=== PATIENT | male | born 1975 | race African-American/Black ===

== ENCOUNTER 2018-01-24 14:54 | Emergency (ER) | payer MEDICAID ==
[~2018-01-24] VITALS: Ht 175.3 cm; Wt 136.1 kg
[2018-01-24 15:17] VITALS: BP 137/86
[2018-01-24 15:58] LABS: Basophils # (auto) 0 uL; Eosinophils # (auto) 0.1 uL; Eosinophils % (auto) 1.4 % (0.0-7.0)
[2018-01-24 16:00] LABS: Basophils % (auto) 0.4 % (0.0-2.0); Hematocrit 51.1 % (41.0-53.0); Lymphocytes # (auto) 2.5 uL; Lymphocytes % (auto) 27.6 % (10.0-50.0); Mean Corpuscular Hemoglobin 34.7 pg (28.0-32.0); Mean Corpuscular Hgb Conc. 35.2 g/dL (32.0-36.0); Mean Corpuscular Volume 98.6 fL (80.0-100.0); Monocytes % (auto) 10.8 % (0.0-12.0); Neutrophils # (auto) 5.4 uL; Neutrophils % (auto) 59.8 % (37.0-80.0); Nucleated Red Blood Cells % 0.1 %; Platelet Count (auto) 185 10^3/uL (140-450); Red Blood Cells 5.18 10^6/uL (4.5-5.90); Red Cell Distribution Width 14.6 % (11.8-14.3)
[2018-01-24 16:09] LABS: Alanine Aminotransferase 33 U/L (16-61); Albumin 3.4 g/dL (3.4-5.0); Anion Gap 7 (5-15); Aspartate Aminotransferase 19 U/L (15-37); BUN/Creatinine Ratio 7.7; Blood Urea Nitrogen 6 mg/dL (7-18); Calcium 8.8 mg/dL (8.5-10.1); Carbon Dioxide 28 mmol/L (21-32); Chloride 102 mmol/L (98-107); GFR African American 141 mL/min; GFR Non-African American 117 mL/min; Glucose 124 mg/dL (74-106); Potassium 3.8 mmol/L (3.5-5.1); Sodium 137 mmol/L (136-145)
[2018-01-24 16:14] LABS: Alkaline Phosphatase 83 U/L (45-117); Bilirubin, Total 0.5 mg/dL (0.2-1.0); Total Protein 8.4 g/dL (6.4-8.2)
== END 2018-01-25 01:04 | disposition left against medical advice (07) ==
LOC: ER 14:54
DX: R44.0 Auditory hallucinations (principal); Z53.21 Procedure and treatment not carried out due to patient leaving prior to being seen by health care provider
CPT/HCPCS: 36415; 80053; 84484; 85025

== ENCOUNTER → 2018-01-24 14:59 | Emergency (ER) | payer MEDICAID | END | disposition left against medical advice (07) | LOC: ER 14:59 | DX: R44.0 Auditory hallucinations (principal); Z53.21 Procedure and treatment not carried out due to patient leaving prior to being seen by health care provider ==

== ENCOUNTER 2018-04-06 21:37 | Observation (INO) | payer MEDICAID ==
[~2018-04-06] VITALS: Ht 177.8 cm; Wt 154.2 kg
[2018-04-07] MEDS ORDERED: HALOPERIDOL LACTATE 5 MG/ML INJ VIAL ONE (00:40)
[2018-04-07] MEDS ORDERED: HALOPERIDOL LACTATE 5 MG/ML INJ VIAL IM ONE (00:45)
[2018-04-07] MEDS ORDERED: LORazepam 2MG/ML-1ML VIAL IV ONE (00:45)
[2018-04-07] MEDS ORDERED: diphenhdrAMINE HCL 50 MG/1 ML VL IM ONE (00:45)
[2018-04-07] MEDS ORDERED: LORazepam 2MG/ML-1ML VIAL IM ONE (01:00)
[2018-04-07 01:07] LABS: Basophils # (auto) 0 uL; Basophils % (auto) 0.4 % (0.0-2.0); Eosinophils # (auto) 0.1 uL; Eosinophils % (auto) 0.7 % (0.0-7.0); Hematocrit 52.1 % (41.0-53.0); Hemoglobin 17.7 g/dL (13.5-17.5); Lymphocytes # (auto) 3.4 uL; Lymphocytes % (auto) 27.2 % (10.0-50.0); Mean Corpuscular Hemoglobin 34.1 pg (28.0-32.0); Mean Corpuscular Hgb Conc. 33.9 g/dL (32.0-36.0); Mean Corpuscular Volume 100.5 fL (80.0-100.0); Monocytes # (auto) 1.2 uL; Monocytes % (auto) 9.8 % (0.0-12.0); Neutrophils # (auto) 7.8 uL; Neutrophils % (auto) 61.9 % (37.0-80.0); Nucleated Red Blood Cells % 0.1 %; Platelet Count (auto) 196 10^3/uL (140-450); Red Blood Cells 5.18 10^6/uL (4.5-5.90); Red Cell Distribution Width 14.8 % (11.8-14.3); White Blood Cell 12.6 10^3/uL (4.4-10.8)
[2018-04-07 01:22] LABS: INR 1.01 (0.9-1.15); Partial Thromboplastin Time 29.1 sec (23.78-33.04); Prothrombin Time 10.8 sec (9.27-12.13)
[2018-04-07 01:23] LABS: Alanine Aminotransferase 43 U/L (16-61); Albumin 3.7 g/dL (3.4-5.0); Anion Gap 8 (5-15); BUN/Creatinine Ratio 10.8; Blood Alcohol < 3.0 mg/dL (0-5); Blood Urea Nitrogen 10 mg/dL (7-18); Calcium 9.2 mg/dL (8.5-10.1); Carbon Dioxide 28 mmol/L (21-32); Chloride 105 mmol/L (98-107); GFR African American 115 mL/min; GFR Non-African American 95 mL/min; Glucose 92 mg/dL (74-106); Potassium 4.8 mmol/L (3.5-5.1); Sodium 141 mmol/L (136-145)
[2018-04-07 01:25] LABS: Acetaminophen < 2.0 ug/mL (10-30); Salicylate 4.1 mg/dL (2.8-20.0)
[2018-04-07 01:32] LABS: Alkaline Phosphatase 86 U/L (45-117); Aspartate Aminotransferase 23 U/L (15-37); Bilirubin, Total 0.7 mg/dL (0.2-1.0); Total Protein 8.5 g/dL (6.4-8.2)
[2018-04-07 05:19] LABS: Urine Bacteria NONE SEEN /hpf (None Seen); Urine Blood Negative /uL (Negative); Urine Mucus FEW (None Seen); Urine Specific Gravity 1.023 (1.001-1.035); Urine WBC 1 /hpf (0 - 3)
[2018-04-07 05:27] LABS: Alcohol, Urine < 3.0 mg/dL (0-5); Amphetamine Screen, Urine NEGATIVE (NEGATIVE); Barbiturate Scree,Urine NEGATIVE (NEGATIVE); Benzodiazephine Screen, Urine NEGATIVE (NEGATIVE); Cannabinoid Screen, Urine NEGATIVE (NEGATIVE); Cocaine Screen, Urine NEGATIVE (NEGATIVE); Opiate Scree,Urine NEGATIVE (NEGATIVE); Phencyclidine Screen, Urine NEGATIVE (NEGATIVE)
[2018-04-07] MEDS ORDERED: IBUPROFEN 600 MG TAB PO PRN (06:15)
[2018-04-07] MEDS: HCTZ 25 MG TAB PO SCH (10:18)
[2018-04-07] MEDS: BENZTROPINE MESY 0.5 MG TAB PO SCH ×2 (10:19→21:33)
[2018-04-07] MEDS: HALOPERIDOL 5 MG TAB PO SCH ×2 (10:19→21:33)
[2018-04-07] MEDS: traZODone HCL 50 MG TAB PO SCH ×2 (10:53→21:33)
[2018-04-07] MEDS: ATORVASTATIN 20 MG TAB PO SCH (21:33)
[2018-04-08] MEDS: HALOPERIDOL 5 MG TAB PO SCH ×2 (10:26→22:45)
[2018-04-08] MEDS: BENZTROPINE MESY 0.5 MG TAB PO SCH ×2 (10:26→22:45)
[2018-04-08] MEDS: traZODone HCL 50 MG TAB PO SCH ×2 (10:26→22:45)
[2018-04-08] MEDS: HCTZ 25 MG TAB PO SCH (10:27)
[2018-04-08] MEDS: ATORVASTATIN 20 MG TAB PO SCH (22:45)
[2018-04-09] MEDS: BENZTROPINE MESY 0.5 MG TAB PO SCH ×2 (10:19→22:00)
[2018-04-09] MEDS: traZODone HCL 50 MG TAB PO SCH ×2 (10:19→22:00)
[2018-04-09] MEDS: HALOPERIDOL 5 MG TAB PO SCH ×2 (10:19→22:00)
[2018-04-09] MEDS: HCTZ 25 MG TAB PO SCH (10:20)
[2018-04-09] MEDS: ATORVASTATIN 20 MG TAB PO SCH (22:00)
[2018-04-10 07:12] VITALS: BP 126/92
== END 2018-04-10 09:09 | disposition home or self-care (01) | DRG 750 ==
LOC: ER 21:37 → OVERFLOW 21:38 → ER 04-10 09:09
PROVIDERS: ADMIT Emergency Medicine; ATTEND Emergency Medicine
DX: F20.9 Schizophrenia, unspecified (principal); Z91.14 Patient's other noncompliance with medication regimen; I10 Essential (primary) hypertension; F31.9 Bipolar disorder, unspecified
CPT/HCPCS: 36415; 80053; 80307; 80320; 80329; 81001; 85025; 85610; 85730; 96372; 99285; G0378; J1200; J1630

== ENCOUNTER 2020-03-28 19:38 | Emergency (ER) | payer MEDICAID ==
[~2020-03-28] VITALS: Ht 177.8 cm; Wt 122.5 kg
[2020-03-28 21:50] VITALS: BP 141/94
== END 2020-03-28 23:13 | disposition home or self-care (01) ==
LOC: ER 19:38 → EDBD 19:38 → EDUNIT# 19:38 → ER 23:13
DX: G40.909 Epilepsy, unspecified, not intractable, without status epilepticus (principal); R41.82 Altered mental status, unspecified; I10 Essential (primary) hypertension; F31.9 Bipolar disorder, unspecified; F20.9 Schizophrenia, unspecified

== ENCOUNTER 2020-04-18 04:33 | Emergency (ER) | payer MEDICAID ==
[~2020-04-18] VITALS: Ht 182.9 cm; Wt 59.0 kg
[2020-04-18 17:19] LABS: Basophils # (auto) 0 10 ^3/uL (0-0.2); Basophils % (auto) 0.3 % (0.0-2.0); Eosinophils # (auto) 0.1 10 ^3/uL (0-0.8); Eosinophils % (auto) 0.7 % (0.0-7.0); Lymphocytes # (auto) 2.4 10 ^3/uL (0.4-5.4); Lymphocytes % (auto) 28.4 % (10.0-50.0); Mean Corpuscular Hemoglobin 31.3 pg (28.0-32.0); Mean Corpuscular Hgb Conc. 32.7 g/dL (32.0-36.0); Mean Corpuscular Volume 95.9 fL (80.0-100.0); Monocytes # (auto) 0.6 10 ^3/uL (0-1.3); Monocytes % (auto) 7.6 % (0.0-12.0); Neutrophils # (auto) 5.3 10 ^3/uL (1.6-8.6); Nucleated Red Blood Cells % 0.1 %; Platelet Count (auto) 167 10^3/uL (140-450); Red Blood Cells 5.42 10^6/uL (4.5-5.90); Red Cell Distribution Width 15.1 % (11.8-14.3); White Blood Cell 8.4 10^3/uL (4.4-10.8)
[2020-04-18 17:35] LABS: Albumin 3.5 g/dL (3.4-5.0); Anion Gap 3 (5-15); Blood Urea Nitrogen 9 mg/dL (7-18); Calcium 8.8 mg/dL (8.5-10.1); Carbon Dioxide 33 mmol/L (21-32); Chloride 102 mmol/L (98-107); Glucose 93 mg/dL (74-106); Magnesium 2.3 mg/dL (1.6-2.6); Potassium 3.5 mmol/L (3.5-5.1); Sodium 138 mmol/L (136-145)
[2020-04-18 17:41] LABS: Alanine Aminotransferase 35 U/L (16-61); Alkaline Phosphatase 80 U/L (45-117); Aspartate Aminotransferase 17 U/L (15-37); BUN/Creatinine Ratio 13.4; Bilirubin, Total 0.6 mg/dL (0.2-1.0); GFR African American 166 mL/min; GFR Non-African American 138 mL/min; Total Protein 7.8 g/dL (6.4-8.2)
[2020-04-18 18:04] LABS: Urine Bacteria NONE SEEN /hpf (None Seen); Urine Blood Negative /uL (Negative); Urine Mucus FEW (None Seen); Urine Specific Gravity 1.015 (1.001-1.035); Urine WBC 1 /hpf (0 - 3)
[2020-04-18 18:18] LABS: Alcohol, Urine < 3.0 mg/dL (0-10); Amphetamine Screen, Urine NEGATIVE (NEGATIVE); Barbiturate Scree,Urine NEGATIVE (NEGATIVE); Benzodiazephine Screen, Urine POSITIVE (NEGATIVE); Cannabinoid Screen, Urine NEGATIVE (NEGATIVE); Cocaine Screen, Urine NEGATIVE (NEGATIVE); Opiate Scree,Urine NEGATIVE (NEGATIVE); Phencyclidine Screen, Urine NEGATIVE (NEGATIVE)
[2020-04-18 22:16] VITALS: BP 124/76
== END 2020-04-18 18:55 | disposition home or self-care (01) ==
LOC: EDUNIT# 04:33 → EDBD 04:33 → ER 04:33
DX: R06.02 Shortness of breath (principal); I10 Essential (primary) hypertension; E78.5 Hyperlipidemia, unspecified; F32.9 Major depressive disorder, single episode, unspecified
CPT/HCPCS: 36415; 80053; 80307; 81001; 83735; 84484; 85025; 93005

== ENCOUNTER 2020-09-20 08:07 | Emergency (ER) | payer MEDICAID ==
[~2020-09-20] VITALS: Ht 177.8 cm; Wt 49.9 kg
[2020-09-20] MEDS ORDERED: LORazepam 2MG/ML-1ML VIAL IV ONE (08:45)
[2020-09-20 09:51] LABS: Basophils # (auto) 0 10 ^3/uL (0-0.2); Basophils % (auto) 0.2 % (0.0-2.0); Eosinophils # (auto) 0 10 ^3/uL (0-0.8); Eosinophils % (auto) 0.6 % (0.0-7.0); Hematocrit 47.7 % (41.0-53.0); Hemoglobin 16.6 g/dL (13.5-17.5); Lymphocytes # (auto) 2.1 10 ^3/uL (0.4-5.4); Lymphocytes % (auto) 30.5 % (10.0-50.0); Mean Corpuscular Hemoglobin 33.2 pg (28.0-32.0); Mean Corpuscular Hgb Conc. 34.9 g/dL (32.0-36.0); Mean Corpuscular Volume 95.4 fL (80.0-100.0); Monocytes # (auto) 0.5 10 ^3/uL (0-1.3); Monocytes % (auto) 7.4 % (0.0-12.0); Neutrophils # (auto) 4.2 10 ^3/uL (1.6-8.6); Neutrophils % (auto) 61.3 % (37.0-80.0); Platelet Count (auto) 176 10^3/uL (140-450); Red Cell Distribution Width 13.5 % (11.8-14.3); White Blood Cell 6.8 10^3/uL (4.4-10.8)
[2020-09-20 10:07] LABS: Potassium 3.6 mmol/L (3.5-5.1)
[2020-09-20 10:14] LABS: Albumin 3.4 g/dL (3.4-5.0); BUN/Creatinine Ratio 15.9; Bilirubin, Total 0.7 mg/dL (0.2-1.0); Calcium 8.8 mg/dL (8.5-10.1); Total Protein 7.9 g/dL (6.4-8.2)
[2020-09-20] MEDS ORDERED: VALPROATE INJ 1,000 MG in SODIUM CHL 0.9% 100 ML IV ONE (13:15)
[2020-09-20 18:44] VITALS: BP 118/59
== END 2020-09-20 19:03 | disposition home or self-care (01) ==
LOC: ER 08:07 → EDBD 08:07 → ER 19:03
DX: G40.909 Epilepsy, unspecified, not intractable, without status epilepticus (principal); E78.5 Hyperlipidemia, unspecified; I10 Essential (primary) hypertension; Z95.0 Presence of cardiac pacemaker
CPT/HCPCS: 36415; 80053; 80164; 85025; 96365; 96375; 99285; J2060

== ENCOUNTER → 2021-03-17 | Emergency (ER) | payer MEDICAID ==
[~2021-03-17] VITALS: Ht 188 cm; Wt 104.3 kg
[~2021-03-17] MED LIST: HALOPERIDOL LACTATE 5 MG/ML INJ VIAL IM ONE; LORazepam 2MG/ML-1ML VIAL IM ONE; LORazepam 2MG/ML-1ML VIAL IV ONE; QUEtiapine FUMARATE 100 MG TAB PO ONE; diphenhdrAMINE HCL 50 MG/1 ML VL IM ONE; diphenhdrAMINE HCL 50 MG/1 ML VL IV ONE; hydrOXYzine 25 MG TAB or CAP PO PRN
[2021-03-17 21:55] LABS: Basophils # (auto) 0 10 ^3/uL (0-0.2); Basophils % (auto) 0.3 % (0.0-2.0); Eosinophils # (auto) 0.2 10 ^3/uL (0-0.8); Eosinophils % (auto) 1.2 % (0.0-7.0); Hematocrit 48.8 % (41.0-53.0); Hemoglobin 16.3 g/dL (13.5-17.5); Lymphocytes # (auto) 5.3 10 ^3/uL (0.4-5.4); Lymphocytes % (auto) 40.4 % (10.0-50.0); Mean Corpuscular Hemoglobin 32.6 pg (28.0-32.0); Mean Corpuscular Hgb Conc. 33.3 g/dL (32.0-36.0); Mean Corpuscular Volume 97.8 fL (80.0-100.0); Monocytes % (auto) 7.9 % (0.0-12.0); Neutrophils # (auto) 6.6 10 ^3/uL (1.6-8.6); Neutrophils % (auto) 50.2 % (37.0-80.0); Nucleated Red Blood Cells % 0.2 %; Red Blood Cells 4.99 10^6/uL (4.5-5.90); Red Cell Distribution Width 13.4 % (11.8-14.3); White Blood Cell 13.1 10^3/uL (4.4-10.8)
[2021-03-17 22:17] LABS: Albumin 3.5 g/dL (3.4-5.0); Anion Gap 11 (5-15); Blood Alcohol < 3.0 mg/dL (0-5); Blood Urea Nitrogen 15 mg/dL (7-18); Calcium 8.5 mg/dL (8.5-10.1); Carbon Dioxide 24 mmol/L (21-32); Chloride 105 mmol/L (98-107); Glucose 99 mg/dL (74-106); Potassium 3.6 mmol/L (3.5-5.1); Sodium 140 mmol/L (136-145)
[2021-03-17 22:20] LABS: Alanine Aminotransferase 24 U/L (16-61); Alkaline Phosphatase 60 U/L (45-117); Aspartate Aminotransferase 17 U/L (15-37); BUN/Creatinine Ratio 16.5; Bilirubin, Total 0.5 mg/dL (0.2-1.0); GFR African American 116 mL/min; GFR Non-African American 96 mL/min; Total Protein 7.7 g/dL (6.4-8.2)
[2021-03-17 22:22] LABS: Acetaminophen < 2.0 ug/mL (10-30); Salicylate < 1.7 mg/dL (2.8-20.0)
[2021-03-18 02:34] LABS: Amphetamine Screen, Urine NEGATIVE (NEGATIVE); Barbiturate Scree,Urine NEGATIVE (NEGATIVE); Benzodiazephine Screen, Urine POSITIVE (NEGATIVE); Cannabinoid Screen, Urine NEGATIVE (NEGATIVE); Cocaine Screen, Urine NEGATIVE (NEGATIVE); Opiate Scree,Urine NEGATIVE (NEGATIVE); Phencyclidine Screen, Urine NEGATIVE (NEGATIVE)
[2021-03-18 02:40] LABS: Urine Bacteria NONE SEEN /hpf (None Seen); Urine Blood Negative /uL (Negative); Urine Specific Gravity 1.013 (1.001-1.035); Urine WBC 1 /hpf (0 - 3)
[2021-03-18] MEDS: clonazePAM 0.5 MG TAB PO SCH ×2 (14:00→22:30)
[2021-03-18] MEDS: QUEtiapine FUMARATE 100 MG TAB PO SCH (22:30)
[2021-03-19] MEDS: clonazePAM 0.5 MG TAB PO SCH ×3 (06:00→23:00)
[2021-03-19 20:21] VITALS: BP 106/50
[2021-03-19] MEDS: QUEtiapine FUMARATE 100 MG TAB PO SCH (23:00)
== END | disposition still patient (30) ==
LOC: EDUNIT# 20:47 → EDBD 20:59 → ER 21:03
DX: F29 Unspecified psychosis not due to a substance or known physiological condition (principal); I10 Essential (primary) hypertension; E78.5 Hyperlipidemia, unspecified; Z20.822 Contact with and (suspected) exposure to COVID-19
CPT/HCPCS: 36415; 80053; 80307; 80320; 80329; 81001; 85025; 87426; 96372; 99285; J1200; J1630; J2060

== ENCOUNTER 2021-04-25 22:34 | Emergency (ER) | payer MEDICAID ==
[~2021-04-25] VITALS: Ht 175.3 cm; Wt 95.3 kg
[2021-04-26 01:47] VITALS: BP 131/76
== END 2021-04-26 20:56 | disposition left against medical advice (07) ==
LOC: EDBD 22:34 → ER 22:34
DX: F23 Brief psychotic disorder (principal); G93.41 Metabolic encephalopathy; F32.9 Major depressive disorder, single episode, unspecified; I10 Essential (primary) hypertension; E78.5 Hyperlipidemia, unspecified; Z53.29 Procedure and treatment not carried out because of patient's decision for other reasons

== ENCOUNTER 2021-06-19 19:07 | Emergency (ER) | payer MEDICAID ==
[~2021-06-19] VITALS: Ht 182.9 cm; Wt 111.1 kg
[2021-06-19] MEDS ORDERED: cefTRIAXone SOD 500 MG VL IV ONE (19:30)
[2021-06-19] MEDS ORDERED: methylPREDNISolone SOD SUCC 125 MG/2 ML VL IV ONE (19:30)
[2021-06-19] MEDS ORDERED: diphenhdrAMINE HCL 50 MG/1 ML VL ONE (20:16)
[2021-06-19] MEDS ORDERED: LORazepam 2MG/ML-1ML VIAL ONE (20:16)
[2021-06-19] MEDS ORDERED: HALOPERIDOL LACTATE 5 MG/ML INJ VIAL ONE (20:16)
[2021-06-19] MEDS ORDERED: diphenhdrAMINE HCL 50 MG/1 ML VL IM ONE (20:30)
[2021-06-19] MEDS ORDERED: LORazepam 2MG/ML-1ML VIAL IM ONE (20:30)
[2021-06-19] MEDS ORDERED: HALOPERIDOL LACTATE 5 MG/ML INJ VIAL IM ONE (20:30)
[2021-06-19 21:09] LABS: Urine Bacteria FEW /hpf (None Seen); Urine Blood Negative /uL (Negative); Urine Specific Gravity 1.012 (1.001-1.035); Urine WBC 1 /hpf (0 - 3)
[2021-06-19 21:26] LABS: Alcohol, Urine < 3.0 mg/dL (0-10); Amphetamine Screen, Urine NEGATIVE (NEGATIVE); Barbiturate Scree,Urine NEGATIVE (NEGATIVE); Benzodiazephine Screen, Urine NEGATIVE (NEGATIVE); Cannabinoid Screen, Urine NEGATIVE (NEGATIVE); Cocaine Screen, Urine NEGATIVE (NEGATIVE); Opiate Scree,Urine NEGATIVE (NEGATIVE); Phencyclidine Screen, Urine NEGATIVE (NEGATIVE)
[2021-06-19 22:03] LABS: Basophils # (auto) 0 10 ^3/uL (0-0.2); Basophils % (auto) 0.5 % (0.0-2.0); Eosinophils # (auto) 0.1 10 ^3/uL (0-0.8); Eosinophils % (auto) 1.2 % (0.0-7.0); Hematocrit 46.4 % (41.0-53.0); Hemoglobin 15.9 g/dL (13.5-17.5); Lymphocytes # (auto) 1.7 10 ^3/uL (0.4-5.4); Lymphocytes % (auto) 19.6 % (10.0-50.0); Mean Corpuscular Hemoglobin 33.2 pg (28.0-32.0); Mean Corpuscular Hgb Conc. 34.3 g/dL (32.0-36.0); Mean Corpuscular Volume 96.6 fL (80.0-100.0); Monocytes # (auto) 0.8 10 ^3/uL (0-1.3); Monocytes % (auto) 8.9 % (0.0-12.0); Neutrophils % (auto) 69.8 % (37.0-80.0); Nucleated Red Blood Cells % 0.1 %; Red Blood Cells 4.81 10^6/uL (4.5-5.90); White Blood Cell 8.5 10^3/uL (4.4-10.8)
[2021-06-19 22:23] LABS: BUN/Creatinine Ratio 18.8; Calcium 8.3 mg/dL (8.5-10.1); Potassium 4.5 mmol/L (3.5-5.1); Salicylate 2.2 mg/dL (2.8-20.0)
[2021-06-19 22:24] LABS: Acetaminophen < 2.0 ug/mL (10-30)
[2021-06-19] MEDS ORDERED: cefTRIAXone 1GM/50ML D5W 50 ML IV ONE (23:15)
[2021-06-20] MEDS ORDERED: diphenhdrAMINE HCL 25 MG CAP PO PRN (08:45)
[2021-06-20] MEDS ORDERED: HALOPERIDOL 5 MG TAB PO PRN (08:45)
[2021-06-20] MEDS ORDERED: LORazepam 0.5 MG TAB PO PRN (08:45)
[2021-06-20] MEDS ORDERED: OLANZapine 5 MG TAB PO ONE (15:00)
[2021-06-20 19:49] VITALS: BP 133/77
[2021-06-21] MEDS ORDERED: OLANZapine 5 MG TAB PO ONE (10:00)
== END 2021-06-21 11:29 | disposition left against medical advice (07) ==
LOC: EDUNIT# 19:07 → EDBD 19:07 → ER 19:09
DX: F29 Unspecified psychosis not due to a substance or known physiological condition (principal); R06.00 Dyspnea, unspecified; R45.851 Suicidal ideations; F32.9 Major depressive disorder, single episode, unspecified; E78.00 Pure hypercholesterolemia, unspecified; F20.9 Schizophrenia, unspecified; I25.2 Old myocardial infarction; I10 Essential (primary) hypertension; F17.210 Nicotine dependence, cigarettes, uncomplicated; Z20.822 Contact with and (suspected) exposure to COVID-19
CPT/HCPCS: 36415; 71045; 80048; 80307; 80329; 81001; 85025; 87426; 96365; 96372; 96375; 99285; J0696; J1200; J1630; J2060; J2930

== ENCOUNTER 2024-04-13 11:16 | Emergency (ER) | payer MEDICAID ==
[~2024-04-13] VITALS: Ht 177.8 cm; Wt 136.5 kg
[2024-04-13 11:55] VITALS: PULSE 119; O2SAT 95
[2024-04-13 12:02] VITALS: PULSE 101; RESP 18; O2SAT 95
[2024-04-13] MEDS: LORazepam 2MG/ML-1ML VIAL IM ONE (12:20)
[2024-04-13 12:46] LABS: Amphetamine Screen, Urine Pos (NEGATIVE)
[2024-04-13 12:47] LABS: Barbiturate Scree,Urine Neg (NEGATIVE); Benzodiazephine Screen, Urine Neg (NEGATIVE); Cannabinoid Screen, Urine Neg (NEGATIVE); Cocaine Screen, Urine Neg (NEGATIVE); Opiate Scree,Urine Neg (NEGATIVE); Phencyclidine Screen, Urine Neg (NEGATIVE)
[2024-04-13] MEDS ORDERED: DIVA1TAB59 PO (18:35)
[2024-04-13] MEDS ORDERED: QUET100T47 PO (18:35)
[2024-04-13] MEDS ORDERED: LEVE500T40 PO (18:35)
[2024-04-13] MEDS ORDERED: OLAN20TA30 PO (18:35)
[2024-04-13] MEDS ORDERED: APIX2.5T PO (18:35)
[2024-04-13] MEDS ORDERED: FURO20TA3 PO (18:35)
[2024-04-13] MEDS ORDERED: TRAZ1TAB12 PO (18:35)
[2024-04-13] MEDS ORDERED: GABA-1308 PO (18:35)
[2024-04-13] MEDS ORDERED: ATOR40TA52 PO (18:35)
[2024-04-13 19:30] VITALS: BP 135/78; PULSE 89; RESP 20; O2SAT 96
[2024-04-13] MEDS: IBUPROFEN 600 MG TAB PO ONE (20:02)
[2024-04-13 21:02] VITALS: TEMP 98.7
[2024-04-13] MEDS: OLANZapine 5 MG TAB PO SCH (21:23)
== END 2024-04-13 23:23 | disposition home or self-care (01) ==
LOC: EDBD 11:16 → EDUNIT# 11:16 → ER 11:16
DX: F23 Brief psychotic disorder (principal); I10 Essential (primary) hypertension; I25.2 Old myocardial infarction; F32.9 Major depressive disorder, single episode, unspecified; E78.5 Hyperlipidemia, unspecified; F17.210 Nicotine dependence, cigarettes, uncomplicated; Z79.899 Other long term (current) drug therapy
CPT/HCPCS: 80307; 96372; 99283; J2060

== ENCOUNTER 2025-05-13 18:33 | Emergency (ER) | payer MEDICAID ==
[~2025-05-13] VITALS: Ht 175.3 cm; Wt 138.1 kg
[~2025-05-13 18:33] MED LIST changes: +APIX2.5T PO; +ATOR40TA52 PO; +DIVA1TAB59 PO; +FURO20TA3 PO; +GABA-1308 PO; -HALOPERIDOL LACTATE 5 MG/ML INJ VIAL IM ONE; +LEVE500T40 PO; -LORazepam 2MG/ML-1ML VIAL IM ONE; -LORazepam 2MG/ML-1ML VIAL IV ONE; +OLAN1TAB75 PO; +QUET100T47 PO; -QUEtiapine FUMARATE 100 MG TAB PO ONE; +TRAZ1TAB12 PO; -diphenhdrAMINE HCL 50 MG/1 ML VL IM ONE; -diphenhdrAMINE HCL 50 MG/1 ML VL IV ONE; -hydrOXYzine 25 MG TAB or CAP PO PRN
[2025-05-13] MEDS ORDERED: AMOX875T4 PO (19:01)
[2025-05-13] MEDS ORDERED: ACET500T58 PO (19:01)
--- NOTE | 2025-05-13 19:01 | ED.PDOC ---
Eye-HPI HPI Comments 49 year old male presents to ER with complaints of wound check. Patient states he's had a painful white sore to left side of tongue x 2 weeks and presents to ER today for wound check. Denies any trauma/injury and denies use of medications for current symptoms. Denies fever, body aches, chills, fatigue, night sweats, bleeding/drainage or any further symptoms/complaints Chief Complaint: Sore Throat Time Seen by MD: 18:36 Primary Care Provider: UNKNOWN Reviewed Notes: Nurses Notes, Medications, Allergies Allergies: Coded Allergies: NO KNOWN ALLERGIES (Unverified , 01/24/18) Home Meds Active Scripts Amoxicillin & Pot Clavulanate (Amoxicillin/Potassium Cla) 875 Mg Tab, 1 TAB PO BID for 7 Days, #14 TAB 0 Refills Prov:OLIVIER FRANCO 05/13/25 Acetaminophen (Acetaminophen) 500 Mg Tab, 500 MG PO Q4HPRN, #30 TAB 0 Refills Prov:OLIVIER FRANCO 05/13/25 Reported Medications Trazodone Hcl (Trazodone Hcl) 150 Mg Tab, 150 MG PO HS, MG 04/13/24 Apixaban Base (ELIQUIS) 2.5 Mg Tab, 2.5 MG PO BID, TAB 04/13/24 Olanzapine (OLANZAPINE) 20 Mg Tab, 1 TAB PO QPM, #30 TAB 1 Refill 04/13/24 Atorvastatin Calcium (ATORVASTATIN CALCIUM) 40 Mg Tab, 1 TAB PO DAILY, #90 TAB 1 Refill 04/13/24 Gabapentin (Gabapentin) 100 Mg Cap, 100 MG PO DAILY, MG 04/13/24 Furosemide (Furosemide) 20 Mg Tab, 20 MG PO DAILY, MG 04/13/24 Quetiapine Fumerate (QUETIAPINE FUMARATE) 100 Mg Tab, 50 MG PO HS for 30 Days, MG 04/13/24 Divalproex Sodium (Divalproex Sodium Dr) 500 Mg Tab, 1 TAB PO BID, #60 TAB 1 Refill 04/13/24 Levetiracetam (Keppra) 500 Mg Tab, 1000 MG PO BID, MG 04/13/24 Information Source: Patient Mode of Arrival: Wheelchair Past Medical History PAST MEDICAL HISTORY: Depression, High Lipids, HTN, [place], Schizophrenia, Seizures Surgical History: Unknown Family History Family History: Unknown Social History Smoker: Cigarettes, Less Than 1 Pack/Day Alcohol: Denies ETOH Use Drugs: Denies Drug Use Lives In: Home Constitutional: denies: chills, diaphoresis, fatigue, fever, malaise, sweats, weakness, others EENTM: reports: others (As stated in HPI) Respiratory: denies: cough, hemoptysis, orthopnea, SOB at rest, shortness of breath, SOB with excertion, stridor, wheezing, others Cardiovascular: denies: chest pain, dizzy spells, diaphoresis, Dyspnea on exertion, edema, irregular heart beat, left arm pain, lightheadedness, palpitations, PND, syncope, others Gastrointestinal: denies: abdomen distended, abdominal pain, blood streaked bowels, constipated, diarrhea, dysphagia, difficulty swallowing, hematemesis, melena, nausea, poor appetite, poor fluid intake, rectal bleeding, rectal pain, vomiting, others Genitourinary: denies: burning, dysuria, flank pain, frequency, hematuria, incontinence, penile discharge, penile sore, pain, testicle pain, testicle swelling, urgency, others Neurological: denies: dizziness, fainting, headache, left sided numbness, left sided weakness, numbness, paresthesia, pre-existing deficit, right sided numbness, right sided weakness, seizure, speech problems, tingling, tremors, weakness, others Musculoskeletal: denies: back pain, gout, joint pain, joint swelling, muscle pain, muscle stiffness, neck pain, others Integumetry: denies: bruises, change in color, change in hair/nails, dryness, laceration, lesions, lumps, rash, wounds, others Allergic/Immunocompromised: denies: Difficulty Healing, Frequent Infections, Hives, Itching, others Hematologic/Lymphatic: denies: anemia, blood clots, easy bleeding, easy bruising, swollen glands, others Endocrine: denies: excessive hunger, excessive sweating, excessive thirst, excessive urination, flushing, intolerance to cold, intolerance to heat, unexplained weight gain, unexplained weight loss, others Psychiatric: denies: anxiety, bipolar disorder, depression, hopeless, panic disorder, schizophrenia, sleepless, suicidal, others Physical Exam General Appearance: No Apparent Distress, Obese HEENT: PERRL/EOMI, Pharyngeal Erythema (Mild tonsillar swelling/erythema noted bilaterally without exudates. Uvula-normal), TMs Normal, Other (Single small white ulcerative lesion to left mid-lateral aspect of tongue approximately 1cm x 1 cm in size. No bleeding, induration, purulent drainage or observed) Neck: Full Range of Motion, Non-Tender, Normal Respiratory: Chest Non-Tender, Lungs Clear, No Accessory Muscle Use, No Respiratory Distress, Normal Breath Sounds Cardiovascular: No Murmur, No Gallop, Regular Rate/Rhythm Breast Exam: Deferred Gastrointestinal: NOT DONE Genitalia: Deferred Pelvic: Deferred Rectal: Deferred Extremities: Normal capillary refill, Normal range of motion Neurologic: Alert, supervisor sample preparation II-XII nml as Tested, No Motor Deficits, Normal Affect, Normal Mood, No Sensory Deficits Cerebellar Function: Normal Reflexes: Normal Skin: Dry, Normal Color, Warm Lymphatic: No Adenopathy Was a procedure done? Was a procedure done?: No Sedation Sedation?: No EENT DIFF Eye: N/A Mouth: Herpes Simplex, Immunodeficiency, Thrush, Other (mass) X-Ray, Labs, Meds, VS Vital Signs Date Time Temp Pulse Resp B/P (MAP) Pulse Ox O2 Delivery O2 Flow Rate FiO2 05/13/25 19:07 98 16 98 Room Air 05/13/25 19:07 98.4 99 19 156/67 (96) 97 98.4 05/13/25 18:35 99.0 91 18 137/79 96 99.0 Saltwater rinses and topical anesthetics discussed and advised Discussed with patient that smoking increases the risk of oral precancerous and malignant lesions. Advised on strict cessation of smoking Advised on prompt outpatient evaluation with dentist or oral surgeon/ENT in 1-2 days for direct visualization and possible biopsy of lesion with all risks of not follow-up discussed Advised to follow up with PCP in 1-2 days Patient verbalized understanding and agreeable with current plan of care Advised to return to ER immediately if symptoms worsen Time of 1ST Reevaluation: 18:34 Reevaluation 1ST: N/A Patient Education/Counseling: Diagnosis, Treatment, Prognosis, Need For Follow Up Family Education/Counseling: No Family Present SEPSIS Sepsis Screen Date sepsis recognized/suspect: May 13, 2025 Time Sepsis recognized/suspect: 1833 Recent Procedure: No On Antibiotic Therapy: No Respiratory Rate >20: No Heart Rate >90: No Temp<36 C (96.8 F) or >38.3 C: No SBP <90 or MAP <65 mmHG: No New Acute Mental Status Change: No Is the patient on CPAP, BIPAP,: No Vital Signs Date Time Temp Pulse Resp B/P (MAP) Pulse Ox O2 Delivery O2 Flow Rate FiO2 05/13/25 19:07 98 16 98 Room Air 05/13/25 19:07 98.4 99 19 156/67 (96) 97 98.4 05/13/25 18:35 99.0 91 18 137/79 96 99.0 Departure 1 Departure Time of Disposition: 18:54 Impression: Primary Impression: Acute tonsillitis Qualified Codes: J03.90 - Acute tonsillitis, unspecified Additional Impression: Aphthous ulcer of tongue Disposition: HOME / SELF CARE / HOMELESS Condition: Stable e-Prescriptions Amoxicillin & Pot Clavulanate (Amoxicillin/Potassium Cla) 875 Mg Tab 1 TAB PO BID for 7 Days, #14 TAB 0 Refills Prov: OLIVIER FRANCO 05/13/25 Acetaminophen (Acetaminophen) 500 Mg Tab 500 MG PO Q4HPRN, #30 TAB 0 Refills Prov: OLIVIER FRANCO 05/13/25 Discharged With: Self Critical Care Note Critical Care Time?: No Stability Stability form required: No Heart Score Heart Score: Heart Score Response (Comments) Value History N/A 0 EKG N/A 0 Age N/A 0 Risk Factors N/A 0 Troponin N/A 0 Total 0 OLIVIER FRANCO May 13, 2025 19:01
[2025-05-13 19:07] VITALS: BP 156/67; PULSE 98; RESP 16; TEMP 98.4; O2SAT 98
== END 2025-05-13 19:08 | disposition home or self-care (01) ==
LOC: ER 18:36
DX: J03.90 Acute tonsillitis, unspecified (principal); K13.79 Other lesions of oral mucosa; F17.210 Nicotine dependence, cigarettes, uncomplicated; Z79.899 Other long term (current) drug therapy